=== PATIENT | male | born 2000 | race Asian ===

== ENCOUNTER 2020-12-01 14:37 | Emergency (ER) | payer MEDICAID, OTHER ==
[~2020-12-01] VITALS: Ht 185.4 cm; Wt 72.0 kg
== END 2020-12-01 15:27 | disposition home or self-care (01) ==
LOC: ER 14:38
DX: J06.9 Acute upper respiratory infection, unspecified (principal); R51.9 Headache, unspecified; R06.02 Shortness of breath; Z20.828 Contact with and (suspected) exposure to other viral communicable diseases
CPT/HCPCS: 36415; 87635; 99283